=== PATIENT | female | born 1935 | race Caucasian/White ===

== ENCOUNTER 2020-12-10 01:53 | Inpatient (IN) ==
[2020-12-10 03:31] LABS: Bilirubin,Urine Negative (Negative); Blood,Urine Negative (Negative); Clarity,Urine Clear (Clear); Color,Urine Yellow (Yellow); Glucose,Urine (UA) Normal (Normal); Ketones,Urine 10 mg/dL (Negative); Leukocyte Esterase,Urine Negative (Negative); Mucus,Urine Few per lpf (None-Few); Nitrite,Urine Negative (Negative); PH,Urine 6.5 pH Units (5.0-8.0); Protein,Urine 70 mg/dL (Neg-Trace); RBC,Urine 0-3 per hpf (0-3); Specific Gravity,Urine 1.026 (1.010-1.025); Urobilinogen,Urine Normal (Normal); WBC,Urine 0-3 per hpf (0-3)
[2020-12-10 04:22] LABS: Basophils % 0.4 %; Eosinophils # 0.3 K/mcL (0.0-0.6); Eosinophils % 2.7 %; Hematocrit 47.9 % (35.3-44.9); Immature Granulocytes % 0.5 % (0-4); Mean Corpuscular HGB Conc 31.3 g/dL (31.6-35.5); Mean Corpuscular Hemoglobin 28.7 pg (28.0-33.3); Mean Corpuscular Volume 91.6 fL (83.0-100.0); Mean Platelet Volume 11.5 fL (9.4-12.4); Monocytes % 10.6 %; Neutrophils # 6.9 K/mcL (1.6-8.9); Platelet Count 194 K/mcL (140-400); Red Blood Count 5.23 M/mcL (3.82-4.97); Red Cell Distribution Width 12.8 % (11.5-14.5); Segmented Neutrophils % 74.8 %; White Blood Count 9.2 K/mcL (4.3-11.1)
[2020-12-10 04:40] LABS: BUN/Creatinine Ratio 31 (6-26); Blood Urea Nitrogen 28 mg/dL (8-23); Calcium 10.1 mg/dL (8.6-10.3); Carbon Dioxide 39 mEq/L (23-29); Chloride 98 mEq/L (98-107); Glucose 105 mg/dL (70-105); Lipase 14 Units/L (11-82); Osmolality,Calculated 300 (280-300); Potassium 3.5 mEq/L (3.5-5.1); Sodium 142 mEq/L (136-145); eGFR For African Americans > 60 (> 60); eGFR For Non-African Americans 59 (> 60)
[2020-12-10] MEDS ORDERED: 0.9 % Sodium Chloride 1,000 ML IVC ONE (06:29)
[2020-12-10 07:35] LABS: Alanine Aminotransferase 331 Units/L (7-52); Albumin 3.5 g/dL (3.5-5.7); Alkaline Phosphatase 440 Units/L (34-104); Aspartate Amino Transferase 225 Units/L (13-39); Bilirubin,Direct 0.2 mg/dL (0.0-0.2); Bilirubin,Indirect 0.3 mg/dL (0.0-1.0); Bilirubin,Total 0.5 mg/dL (0.3-1.0); Globulin 3.4 g/dL (2.4-3.5); Total Protein 6.9 g/dL (6.4-8.9)
[2020-12-10] MEDS ORDERED: Ondansetron 4 MG/2 ML VIAL IVP PRN (07:58)
[2020-12-10] MEDS ORDERED: Naloxone 0.4 MG/ML INJ IVP PRN (07:58)
[2020-12-10] MEDS: OLANZapine 5 MG TAB.RAPDIS PO SCH (10:40)
[2020-12-10] MEDS: Magnesium Oxide 400 MG TABLET PO SCH (10:40)
[2020-12-10] MEDS: Folic Acid 1 MG TABLET PO SCH (10:40)
[2020-12-10] MEDS: Ringers Solution, Lactated 1,000 ML IVC SCH ×2 (10:45→22:01)
[2020-12-10] MEDS: Budesonide/Formoterol 160/4.5 1 PUFF INH IH SCH ×2 (13:46→20:19)
[2020-12-10] MEDS: *HR* Heparin 5,000 UNIT/ML VIAL SQ SCH ×2 (14:35→21:58)
[2020-12-10] MEDS: CRANBERRY FRUIT EXTRACT 250 MG PO SCH (16:52)
[2020-12-10] MEDS: Ascorbic Acid 500 MG TABLET PO SCH (17:30)
[2020-12-10] MEDS: Mirtazapine 15 MG TABLET PO SCH (20:05)
[2020-12-10] MEDS: Saline Nasal Spray 44 ML BOTTLE NS SCH (23:14)
[2020-12-11] MEDS: Ipratropium/Albuterol Neb 3 ML IH PRN (01:46)
[2020-12-11] MEDS ORDERED: Acetaminophen 325 MG TABLET PO PRN (02:56)
[2020-12-11] MEDS: *HR* Heparin 5,000 UNIT/ML VIAL SQ SCH ×3 (06:22→21:29)
[2020-12-11] MEDS: Budesonide/Formoterol 160/4.5 1 PUFF INH IH SCH ×2 (07:32→20:23)
[2020-12-11] MEDS: Folic Acid 1 MG TABLET PO SCH (09:06)
[2020-12-11] MEDS: Magnesium Oxide 400 MG TABLET PO SCH (09:06)
[2020-12-11] MEDS: OLANZapine 5 MG TAB.RAPDIS PO SCH (09:06)
[2020-12-11] MEDS: Cholecalciferol (D-3) 1,000 UNIT (25MCG) TABLET PO SCH (09:06)
[2020-12-11] MEDS: Saline Nasal Spray 44 ML BOTTLE NS SCH ×2 (09:07→20:54)
[2020-12-11] MEDS: CRANBERRY FRUIT EXTRACT 250 MG PO SCH ×2 (09:11→18:27)
[2020-12-11] MEDS: Ascorbic Acid 500 MG TABLET PO SCH ×2 (09:15→18:48)
[2020-12-11] MEDS ORDERED: Perflutren Lipid Microsphere 1.3 ML in 0.9 % Sodium Chloride 8.7 ML IVP PRN (10:08)
[2020-12-11 17:30] LABS: Basophils % 0.6 %; Eosinophils # 0.2 K/mcL (0.0-0.6); Eosinophils % 2.2 %; Hematocrit 45.1 % (35.3-44.9); Hemoglobin 14.4 g/dL (11.5-15.4); Immature Granulocytes % 0.6 % (0-4); Lymphocytes # 0.9 K/mcL (0.6-4.6); Lymphocytes % 12.7 %; Mean Corpuscular HGB Conc 31.9 g/dL (31.6-35.5); Mean Corpuscular Hemoglobin 28.5 pg (28.0-33.3); Mean Corpuscular Volume 89.3 fL (83.0-100.0); Mean Platelet Volume 10.7 fL (9.4-12.4); Monocytes # 0.7 K/mcL (0.0-1.3); Monocytes % 10.6 %; Neutrophils # 5.1 K/mcL (1.6-8.9); Platelet Count 269 K/mcL (140-400); Red Blood Count 5.05 M/mcL (3.82-4.97); Red Cell Distribution Width 12.5 % (11.5-14.5); Segmented Neutrophils % 73.3 %
[2020-12-11 18:28] LABS: Alanine Aminotransferase 161 Units/L (7-52); Albumin 3.4 g/dL (3.5-5.7); Albumin/Globulin Ratio 1.1 (1.1-2.2); Alkaline Phosphatase 327 Units/L (34-104); Aspartate Amino Transferase 66 Units/L (13-39); BUN/Creatinine Ratio 19 (6-26); Bilirubin,Total 0.4 mg/dL (0.3-1.0); Blood Urea Nitrogen 11 mg/dL (8-23); Calcium 9.2 mg/dL (8.6-10.3); Carbon Dioxide 34 mEq/L (23-29); Chloride 99 mEq/L (98-107); Globulin 3.2 g/dL (2.4-3.5); Glucose 115 mg/dL (70-105); Magnesium 1.7 mg/dL (1.6-2.6); Osmolality,Calculated 292 (280-300); Potassium 3.2 mEq/L (3.5-5.1); Sodium 141 mEq/L (136-145); Total Protein 6.6 g/dL (6.4-8.9); eGFR For African Americans > 60 (> 60); eGFR For Non-African Americans > 60 (> 60)
[2020-12-11 19:47] LABS: Phosphorous < 1.0 mg/dL (2.7-4.5)
[2020-12-11] MEDS ORDERED: Potassium Phosphate 44 MEQ in 0.9 % Sodium Chloride 250 ML IVPB ONE (20:15)
[2020-12-11] MEDS: Mirtazapine 15 MG TABLET PO SCH (20:52)
[2020-12-11 21:05] LABS: Hepatitis B Surface Antigen Nonreactive (Nonreactive)
[2020-12-11 21:10] LABS: Folate > 22.3 ng/mL (3.0-16.0); Vitamin B12 578 pg/mL (250-1100)
[2020-12-11 21:35] LABS: Hepatitis A Antibody IgM Nonreactive (Nonreactive); Hepatitis C Virus Antibody Nonreactive (Nonreactive)
[2020-12-11 21:36] LABS: Hepatitis B Core IgM Nonreactive (Nonreactive)
[2020-12-12] MEDS: *HR* Heparin 5,000 UNIT/ML VIAL SQ SCH ×3 (05:47→21:55)
[2020-12-12] MEDS: Budesonide/Formoterol 160/4.5 1 PUFF INH IH SCH ×2 (07:36→22:38)
[2020-12-12] MEDS: Cholecalciferol (D-3) 1,000 UNIT (25MCG) TABLET PO SCH (10:37)
[2020-12-12] MEDS: OLANZapine 5 MG TAB.RAPDIS PO SCH (10:38)
[2020-12-12] MEDS: Folic Acid 1 MG TABLET PO SCH (10:38)
[2020-12-12] MEDS: Magnesium Oxide 400 MG TABLET PO SCH (10:38)
[2020-12-12] MEDS: Saline Nasal Spray 44 ML BOTTLE NS SCH ×2 (10:41→21:55)
[2020-12-12] MEDS: Ascorbic Acid 500 MG TABLET PO SCH ×2 (10:44→22:00)
[2020-12-12] MEDS: CRANBERRY FRUIT EXTRACT 250 MG PO SCH (10:49)
[2020-12-12] MEDS: Ipratropium/Albuterol Neb 3 ML IH PRN (12:00)
[2020-12-12] MEDS ORDERED: *HR* FentaNYL PATCH 25 MCG PATCH TD SCH (15:00)
[2020-12-12] MEDS: Mirtazapine 15 MG TABLET PO SCH (21:55)
[2020-12-13 01:46] LABS: BUN/Creatinine Ratio 19 (6-26); Blood Urea Nitrogen 13 mg/dL (8-23); Calcium 9.5 mg/dL (8.6-10.3); Carbon Dioxide 33 mEq/L (23-29); Chloride 99 mEq/L (98-107); Glucose 110 mg/dL (70-105); Osmolality,Calculated 291 (280-300); Phosphorous 2.7 mg/dL (2.7-4.5); Potassium 3.8 mEq/L (3.5-5.1); Sodium 140 mEq/L (136-145); eGFR For African Americans > 60 (> 60); eGFR For Non-African Americans > 60 (> 60)
[2020-12-13] MEDS: OLANZapine 5 MG TAB.RAPDIS PO SCH (07:47)
[2020-12-13] MEDS: Folic Acid 1 MG TABLET PO SCH (07:47)
[2020-12-13] MEDS: Magnesium Oxide 400 MG TABLET PO SCH (07:47)
[2020-12-13] MEDS: Cholecalciferol (D-3) 1,000 UNIT (25MCG) TABLET PO SCH (07:47)
[2020-12-13] MEDS: *HR* Heparin 5,000 UNIT/ML VIAL SQ SCH ×2 (07:47→13:15)
[2020-12-13] MEDS: Saline Nasal Spray 44 ML BOTTLE NS SCH (07:48)
[2020-12-13] MEDS: Ascorbic Acid 500 MG TABLET PO SCH (07:50)
[2020-12-13] MEDS: Budesonide/Formoterol 160/4.5 1 PUFF INH IH SCH (07:55)
[2020-12-13 10:43] VITALS: BP 104/61
[2020-12-13] MEDS ORDERED: 0.9 % Sodium Chloride 1,000 ML IVC SCH (11:30)
== END 2020-12-13 15:15 | disposition home health service (06) | DRG 312 ==
LOC: EMEROOARM 01:53 → 3NENU 01:53 → SUATTDRO 06:37 → 3NENU 08:00
PROVIDERS: ADMIT Student in an Organized Health Care Education/Training Program; ATTEND Internal Medicine

== ENCOUNTER 2022-03-25 09:25 | Inpatient (IN) ==
[2022-03-25] MEDS ORDERED: cefTRIAXone 1,000 MG in 0.9 % Sodium Chloride 10 ML IVP ONE (10:06)
[2022-03-25] MEDS ORDERED: Ipratropium/Albuterol Neb 3 ML IH ONE (10:07)
[2022-03-25] MEDS ORDERED: 0.9 % Sodium Chloride 1,000 ML IV ONE ×2 (10:07→11:41)
[2022-03-25] MEDS ORDERED: methylPREDNISolone 125 MG/2 ML VIAL IVP ONE (10:07)
[2022-03-25] MEDS ORDERED: Iopamidol - 370 500 ML MLS IVP ONE (10:08)
[2022-03-25 10:20] LABS: Basophils % 0.1 %; Immature Granulocytes % 0.3 % (0-4); Monocytes % 10.4 %; Red Cell Distribution Width 13.9 % (11.5-14.5)
[2022-03-25 10:22] LABS: Hematocrit 39.5 % (35.3-44.9); Hemoglobin 11.3 g/dL (11.5-15.4); Immature Platelets 19.5 % (1.1-6.1); Lymphocytes # 0.7 K/mcL (0.6-4.6); Lymphocytes % 6.8 %; Mean Corpuscular HGB Conc 28.6 g/dL (31.6-35.5); Mean Corpuscular Volume 101.3 fL (83.0-100.0); Mean Platelet Volume 12.5 fL (9.4-12.4); Neutrophils # 7.9 K/mcL (1.6-8.9); Platelet Count 136 K/mcL (140-400); Segmented Neutrophils % 82.4 %; White Blood Count 9.6 K/mcL (4.3-11.1)
[2022-03-25] MEDS ORDERED: cefTRIAXone 1,000 MG in Water for inj. (sterile) 10 ML IVP STA (10:27)
[2022-03-25] MEDS ORDERED: Azithromycin 500 MG in 0.9 % Sodium Chloride 250 ML IVPB ONE (10:27)
[2022-03-25 10:28] LABS: INR 1.1; Prothrombin Time 12.6 Seconds (9.4-12.1)
[2022-03-25 10:31] LABS: Activated Partial Thrombo Time 34.8 Seconds (26.0-36.0)
[2022-03-25 10:40] LABS: Anisocytosis 1+ (Not Present); Platelet Estimate Slight Decrease (Normal)
[2022-03-25 10:44] LABS: ABG Base Excess 10 mEq/L (-2 to 3); ABG HCO3 43 mEq/L (21-27); ABG Oxygen Saturation 87 % (95-98); ABG PCO2 120 mmHg (35-45); ABG PH 7.16 pH Units (7.32-7.45); ABG PO2 72 mmHg (85-104); ABG TCO2 46 mEq/L (20-26)
[2022-03-25] MEDS ORDERED: *HR* LORazepam 2 MG/ML VIAL IVP ONE (11:41)
[2022-03-25 11:46] LABS: Alanine Aminotransferase 21 Units/L (7-52); Albumin 3.1 g/dL (3.5-5.7); Albumin/Globulin Ratio 1.1 (1.1-2.2); Alkaline Phosphatase 79 Units/L (34-104); Aspartate Amino Transferase 26 Units/L (13-39); Bilirubin,Direct 0.1 mg/dL (0.0-0.2); Bilirubin,Indirect 0.2 mg/dL (0.0-1.0); Bilirubin,Total 0.3 mg/dL (0.3-1.0); Blood Urea Nitrogen 28 mg/dL (8-23); Calcium 9.4 mg/dL (8.6-10.3); Carbon Dioxide > 45 mEq/L (23-29); Chloride 97 mEq/L (98-107); Globulin 2.9 g/dL (2.4-3.5); Glucose 196 mg/dL (70-105); Magnesium 2.3 mg/dL (1.6-2.6); Osmolality,Calculated 307 (280-300); Phosphorous 5.2 mg/dL (2.7-4.5); Potassium 4.7 mEq/L (3.5-5.1); Sodium 143 mEq/L (136-145); Troponin I 0.03 ng/mL (< 0.04)
[2022-03-25] MEDS ORDERED: Ondansetron 4 MG/2 ML VIAL IVP ONE (11:59)
[2022-03-25 12:03] LABS: BUN/Creatinine Ratio 29 (6-26); eGFR For African Americans > 60 (> 60); eGFR For Non-African Americans 54 (> 60)
[2022-03-25] MEDS ORDERED: Ketamine *HR* 500 MG/10 ML MDV IVP ONE (12:15)
[2022-03-25] MEDS ORDERED: Ketamine *HR* 500 MG/10 ML MDV ONE (12:19)
[2022-03-25] MEDS ORDERED: MetroNIDAZOLE 500 MG/100 ML 500 MG/100 ML BAG IVPB ONE (12:40)
[2022-03-25] MEDS: Dexmedetomidine HCl 400 MCG/100 ML MLS IVC SCH (13:11)
[2022-03-25] MEDS ORDERED: *HR* HYDROmorphone 2 MG/ML SYRINGE IVP PRN (15:17)
[2022-03-25] MEDS ORDERED: *HR* HYDROmorphone (PF) 1 MG/ML SYRINGE IVP PRN (15:17)
[2022-03-25] MEDS ORDERED: *HR* LORazepam 2 MG/ML VIAL IVP PRN ×3 (15:28→16:24)
[2022-03-25] MEDS ORDERED: Ondansetron 4 MG/2 ML VIAL IVP PRN (16:24)
[2022-03-25] MEDS ORDERED: Bisacodyl 10 MG RECTAL SUPPOSITORY RC PRN (16:25)
[2022-03-25] MEDS: *HR* HYDROmorphone 2 MG/ML SYRINGE IVP PRN (22:04)
[2022-03-26] MEDS: Dexmedetomidine HCl 400 MCG/100 ML MLS IVC SCH (03:41)
[2022-03-26] MEDS ORDERED: *HR* FentaNYL PATCH 25 MCG PATCH TD SCH (10:15)
[2022-03-26] MEDS ORDERED: Haloperidol Lactate 5 MG/ML VIAL IVP PRN (10:31)
[2022-03-26] MEDS: *HR* LORazepam 2 MG/ML VIAL IVP SCH ×2 (11:04→18:41)
[2022-03-26] MEDS: *HR* HYDROmorphone 2 MG/ML SYRINGE IVP PRN ×2 (14:32→18:42)
[2022-03-26 20:25] VITALS: BP 96/38; PULSE 78; TEMP 97.4; O2SAT 63
== END 2022-03-26 23:22 | disposition expired | DRG 871 ==
LOC: EMEROOARM 09:25 → 2NNU 16:54 → SUATTDRO 16:54 → 2NNU 18:26
PROVIDERS: ADMIT Internal Medicine; ATTEND Student in an Organized Health Care Education/Training Program